=== PATIENT | female | born 2000 | race Hispanic/Latino ===

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

== ENCOUNTER 2025-09-25 19:05 | Emergency (ER) | payer SELFPAY ==
[~2025-09-25] VITALS: Ht 160 cm; Wt 77.1 kg
--- NOTE | 2025-09-25 21:26 | HMCIMG ---
EXAM: CR right Wrist, 3 View. CLINICAL HISTORY: pain COMPARISON: None provided. FINDINGS: BONES: Oblique fracture distal radius. Avulsion ulnar styloid JOINTS: Fracture line extends to the distal radial ulnar as well as radiocarpal joint SOFT TISSUES: The soft tissues are unremarkable. IMPRESSION: 1. Oblique fracture distal radius. 2. Fracture line extends to the distal radial ulnar as well as radiocarpal joint 3. Avulsion ulnar styloid /[place]
--- NOTE | 2025-09-25 22:26 | ERN ---
ED Note History of Present Illness Stated Complaint: LEFT WRIST PAIN Chief Complaint: Wrist Pain/Injury Time Seen by MD: 19:10 Time Seen by Midlevel: 19:10 Dictation: The patient is a 24-year-old female with no past medical history who presents to the emergency department with complaints of left wrist pain after an accidental fall today around 3:00 a.m.. Patient reports she fell back and use her hand to break the fall. Denies any head trauma denies any back pain abdominal pain or any other injuries from the fall. Allergies: Coded Allergies: No Known Drug Allergies (Unverified Allergy, Unknown, 12/27/19) Home Meds Active Scripts Meloxicam (Meloxicam) 15 Mg Tablet, 1 TAB PO DAILY for 10 Days, #30 TAB 0 R efills Prov:LANA LAMAR BODY AND FENDER MECHANIC APPRENTICE 09/25/25 Past Medical History Past Medical History: No Pertinent History Surgical History: None LMP: Sep 13, 2025 RN Note Reviewed/Agreed w/PFSH: Yes Review of System Dictation Constitutional: Negative for fever,chills, and weight loss Eyes: Negative for injury, pain,redness, and discharge ENT: Negative for injury,pain or swelling Cardiovascular: Negative for chest pain, palpitations, and edema Respiratory: Negative for shortness of breath, cough, and wheezing, Abdomen/GI: Negative for abdominal pain, nausea, vomiting, diarrhea, and constipation Back: Negative for injury and pain : Negative for injury, bleeding and discharge MS/Extremity: Positive for left wrist injury Skin: Negative for rash, and discoloration Neuro: Negative for headache, weakness, numbness, tingling, and seizure Psych: Negative for suicide ideation, homicidal ideation, and hallucinations Initial Vital Sign VS Vital Signs Date Time Temp Pulse Resp B/P (MAP) Pulse Ox O2 Delivery O2 Flow Rate FiO2 09/25/25 19:06 98.1 101 20 138/79 100 Room Air 09/25/25 20:22 0 21 Physical Exam Dictation Vital Signs reviewed General Appearance: Alert, oriented x 3, no acute distress, well developed, nourished. Head and Face: non-traumatic. Eyes: PERRL, pink conjunctivas, eyelid no trauma, anterior chamber with arcus senilis. Ears: Pinnas intact and no signs of trauma or erythema ear canals clear and no discharge TM no erythema Nose: No discharge, no bleeding. Oropharynx: Mouth normal, tongue pink. pharynx clear,no erythema, tonsils no exudates, no abscesses noted, mucous membrane moist Neck: Supple, non-tender, no thyromegaly, no masses, no JVD, no bruits Breast:Deferred Chest:No tenderness, no crepitus, no paradoxical movement, no retractions Lungs:Clear, well-ventilated, symmetric, no rales, no wheezing, no rhonchi, no stridor, good breath sounds bilaterally Heart: Regular rate, regular rhythm, no murmur, no gallops Vascular: no peripheral edema, radial pulses 3+ bilaterally Abdomen: Soft, positive bowel sounds, nondistended, no guarding, nontender, no rebound, no masses no hepatomegaly, no splenomegaly, no Johnson's sign, no hernias. Rectal: Deferred Genital: Deferred Neurological: Normal speech, motor function intact, sensory function intact Musculoskeletal: Neck nontender, full range of motion, back nontender, full range of motion, Extremities: Mild swelling to left wrist, full range of motion to fingers, cap refill less than 2 seconds Skin: Color pink, dry, no turgor, no rash, no lacerations, no abrasions, no contusions. Lymphatic: Deferred Results (Laboratory/Radiology) Laboratory/Radiology Laboratory Tests Test 09/25/25 20:53 Urine HCG, Qualitative NEGATIVE (NEGATIVE) REASON: pain ORDERING PHYSICIAN: LANA LAMAR BODY AND FENDER MECHANIC APPRENTICE PROCEDURE: WRST 3V LT - WRIST COMP 3+VWS LT EXAM: CR right Wrist, 3 View. CLINICAL HISTORY: pain COMPARISON: None provided. FINDINGS: BONES: Oblique fracture distal radius. Avulsion ulnar styloid JOINTS: Fracture line extends to the distal radial ulnar as well as radiocarpal joint SOFT TISSUES: The soft tissues are unremarkable. IMPRESSION: 1. Oblique fracture distal radius. 2. Fracture line extends to the distal radial ulnar as well as radiocarpal joint 3. Avulsion ulnar styloid /[place] Labs Reviewed?: Yes ED Course ED Course Orders Procedure Category Date Status Time ,Urine Test LAB 09/25/25 Complete 19:22 Wrist Comp 3+Vws Lt RAD 09/25/25 Resulted 19:22 Acetaminophen 500mg PHA 09/25/25 Complete Tab (Tylenol 500mg T 19:30 Hydrocodone/Apap PHA 09/25/25 Complete 5/325 (Junior 5/325mg) 22:30 Ketorolac 60mg/2ml PHA 09/25/25 Complete (Toradol 60mg/2ml) 22:30 *Nursing CPOE 09/25/25 Transmitted Communication: 22:17 Current Medications Medications (Trade) Dose Ordered Sig/Jayashree Route PRN Reason Start Time Stop Time Status Last Admin Dose Admin Acetaminophen (TYLenol 500MG TAB) 1,000 mg ONCE PO 09/25/25 19:30 09/25/25 22:20 DC 09/25/25 20:19 Acetaminophen/ Hydrocodone Bitart (NORco 5/325MG) 1 tab ONCE ONCE PO 09/25/25 22:30 09/25/25 22:31 DC 09/25/25 22:31 Ketorolac Tromethamine (toRADol 60MG/ 2ML) 60 mg ONCE ONCE IM 09/25/25 22:30 09/25/25 22:31 DC 09/25/25 22:30 Vital Signs Date Time Temp Pulse Resp B/P (MAP) Pulse Ox O2 Delivery O2 Flow Rate FiO2 09/25/25 22:44 98.1 89 19 136/72 99 Room Air* 0 21 09/25/25 20:22 98.1 101 20 138/79 100 Room Air* 0 21 09/25/25 19:06 98.1 101 20 138/79 100 Room Air Medical Decision Making MDM The patient is a 24-year-old female with no past medical history who presents to the emergency department with complaints of left wrist pain after an accidental fall today around 3:00 a.m.. Patient reports she fell back and use her hand to break the fall. Denies any head trauma denies any back pain abdominal pain or any other injuries from the fall. X-ray showed fractured of the distal radius and ulnar. Patient with no open wounds. Neurovascularly intact, good pulses. Patient will be splinted and instructed to follow up with ortho as outpatient. On physical exam patient is in no acute distress, nontoxic appearance. Differential diagnosis: Left wrist sprain, left wrist fracture, wrist contusion Need for hospitalization: Patient does not meet criteria for hospitalization. There are no social concerns with this patient. DX & DISP Disposition: Discharge Departure Impression: Primary Impression: Left wrist fracture Additional Impression: Closed fracture distal radius and ulna Condition: Stable Scripts Meloxicam (Meloxicam) 15 Mg Tablet 1 TAB PO DAILY for 10 Days, #30 TAB 0 Refills Prov: LANA LAMAR BODY AND FENDER MECHANIC APPRENTICE 09/25/25 Additional Instructions: Your x-ray showed that you have a wrist fracture. You need to follow up with ortho as soon as possible. Take your medications as prescribed. Continue with the your splint until you see your orthopedic. If you develop severe pain, numbness to your fingers or if your symptoms worsen please return to ER. FOLLOW-UP WITH PRIMARY CARE PROVIDER IN 1 TO 2 DAYS. TAKE MEDICATIONS DIRECTED HERE IN THE EMERGENCY ROOM. OKAY TO CONTINUE HOME MEDICATIONS UNLESS OTHERWISE DISCUSSED DURING YOUR VISIT IN THE EMERGENCY ROOM TODAY. RETURN TO YOUR NEAREST EMERGENCY ROOM IF SYMPTOMS WORSEN OR IF THERE IS NO IMPROVEMENT. CALL 911 IF YOU NEED IMMEDIATE ASSISTANCE. TAKE TYLENOL [id number] NEEDED AND IF NO CONTRAINDICATIONS ARE PRESENT. INCREASE ORAL HYDRATION. A WOUND CULTURE OR URINE CULTURE WAS ORDERED HERE IN THE EMERGENCY ROOM DEPARTMENT PLEASE FOLLOW-UP WITH PRIMARY CARE PROVIDER AND ADVISE THEM TO GET REPEAT PORTS FROM OUR FACILITY. IF YOU HAD ANY ELIZABETH WRAP/SPLINTS THAT WERE APPLIED HERE, PLEA SE DO NOT REMOVE THEM UNTIL YOU SEE YOUR PRIMARY CARE OR SPECIALTY. Referrals: NONE (PCP) SHERLYN KNOX MD Time of Disposition: 22:23 I have reviewed the case, and I agree with, Diagnosis and Plan LANA LAMAR BODY AND FENDER MECHANIC APPRENTICE Sep 25, 2025 22:26
[2025-09-25] MEDS: HYDROcodone/APAP 5/325 1 TAB TABLET PO ONE (22:31)
--- NOTE | 2025-09-25 22:42 | NUR ---
PER ER CONE TENDER, SUGAR TONG SPLINT APPLIED TO LEFT WRIST AND ARM. CAPILLARY REFILL IS NORMAL. PATIENT AND MOTHER AT BEDSIDE EDUCATED ON SPLINT CARE AND VERBALIZED UNDERSTANDING.
[2025-09-25 22:44] VITALS: BP 136/72; PULSE 89; RESP 19; TEMP 98.1; O2SAT 99
== END 2025-09-25 23:24 | disposition home or self-care (01) ==
LOC: EDH 19:05
DX: S52.592A Other fractures of lower end of left radius, initial encounter for closed fracture (principal); S52.692A Other fracture of lower end of left ulna, initial encounter for closed fracture; Z79.1 Long term (current) use of non-steroidal anti-inflammatories (NSAID); W03.XXXA Other fall on same level due to collision with another person, initial encounter; Y93.89 Activity, other specified; Y92.89 Other specified places as the place of occurrence of the external cause; Y99.8 Other external cause status
CPT/HCPCS: 99284; 81025; 73110; 29125; 96372; J1885